=== PATIENT | female | born 1995 | race Caucasian/White ===

== ENCOUNTER 2024-11-13 13:56 | Emergency (ER) | payer BC ==
[~2024-11-13] VITALS: Ht 165.1 cm; Wt 68.0 kg
[2024-11-13] MEDS: IV NS 0.9% 1,000 ML BAG IV ONE (14:52)
[2024-11-13] MEDS ORDERED: ONDANSETRON HCL/PF 4 MG/2 ML VIAL ONE (14:54)
[2024-11-13] MEDS ORDERED: FAMOTIDINE/PF INJ 20 MG/2 ML VIAL IV ONE (14:54)
[2024-11-13] MEDS: ONDANSETRON HCL/PF 4 MG/2 ML VIAL IVP ONE (14:58)
[2024-11-13] MEDS: FAMOTIDINE/PF INJ 20 MG/2 ML VIAL IV ONE (14:58)
[2024-11-13 15:02] LABS: BASOPHILS % (AUTO) 0.3 % (0.0-2.0); HEMATOCRIT 44 % (33-45); HEMOGLOBIN 14.5 g/dL (11.5-14.8); LYMPHOCYTES # (AUTO) 1.7 K/uL (0.8-4.8); LYMPHOCYTES % (AUTO) 16.1 % (20.0-44.0); MEAN CORPUSCULAR HEMOGLOBIN 27 PG (26.0-33.0); MEAN CORPUSCULAR HGB CONC 33 g/dl (31.0-36.0); MEAN CORPUSCULAR VOLUME 82 fL (82-100); MONOCYTES # (AUTO) 0.4 K/uL (0.1-1.30); MONOCYTES % (AUTO) 4.1 % (2.0-12.0); NEUTROPHILS # (AUTO) 8.4 K/uL (1.8-8.9); NEUTROPHILS % (AUTO) 79.5 % (43.0-81.0); PLATELET COUNT (AUTO) 283 K/uL (150-450); RED BLOOD CELL COUNT(AUTO) 5.29 MIL/uL (4.0-5.2); WHITE BLOOD COUNT (AUTO) 10.5 K/uL (4.3-11.0)
[2024-11-13 15:20] LABS: CALCIUM, SERUM 10.3 mg/dL (8.5-10.1); CARBON DIOXIDE 26 mmol/L (21-32); CHLORIDE 100 mmol/L (98-107); CREATININE 0.6 mg/dL (0.6-1.3); GLUCOSE 92 mg/dL (74-106); POTASSIUM 3.6 mmol/L (3.5-5.1); SODIUM SERUM 138 mmol/L (136-145); UREA NITROGEN, BLOOD 7 mg/dL (7-18)
[2024-11-13 15:32] LABS: ALANINE AMINOTRANSFERASE 29 U/L (12-78); ALBUMIN 4.7 g/dL (3.4-5.0); ALKALINE PHOSPHATASE 88 U/L (46-116); ASPARTATE AMINOTRANSFERASE 26 U/L (15-37); BILIRUBIN,DIRECT 0.2 mg/dL (0.0-0.2); BILIRUBIN,TOTAL 0.7 mg/dL (0.2-1.0); NT-PRO BNP 193 pg/mL (0-125); TOTAL PROTEIN, SERUM 9.7 g/dL (6.4-8.2)
[2024-11-13] MEDS ORDERED: ACETAMINOPHEN ES 500 MG TABLET ONE (15:47)
[2024-11-13] MEDS ORDERED: ONDA4TAB5 PO (15:49)
[2024-11-13] MEDS: ACETAMINOPHEN ES 500 MG TABLET PO ONE (15:50)
[2024-11-13 16:09] VITALS: BP 121/72; TEMP 97.4; O2SAT 99
== END 2024-11-13 16:10 | disposition home or self-care (01) ==
LOC: ER 13:56
DX: R11.2 Nausea with vomiting, unspecified (principal); R53.1 Weakness; R55 Syncope and collapse; R10.2 Pelvic and perineal pain
CPT/HCPCS: 99285; 96374; 96361; 96375; 93005; 71045; 85025; 80048; 80076; 36415; 84484; 83880; 82962; 84702; J1308; J2405; J7030